=== PATIENT | female | born 1980 | race Two or more races ===

== ENCOUNTER 2018-12-14 10:05 | Emergency (ER) | payer OTHER ==
[~2018-12-14] VITALS: Ht 162.6 cm; Wt 81.6 kg
== END 2018-12-14 15:30 | disposition home or self-care (01) ==
LOC: ER 10:05
DX: K29.70 Gastritis, unspecified, without bleeding (principal)

== ENCOUNTER 2019-01-19 08:34 | Emergency (ER) | payer OTHER ==
[~2019-01-19] VITALS: Ht 162.6 cm; Wt 90.7 kg
== END 2019-01-19 16:07 | disposition home or self-care (01) ==
LOC: ER 08:34
DX: K52.9 Noninfective gastroenteritis and colitis, unspecified (principal); E86.0 Dehydration

== ENCOUNTER 2019-09-19 22:44 | Emergency (ER) | payer OTHER ==
[~2019-09-19] VITALS: Ht 152.4 cm; Wt 83.5 kg
[2019-09-19] MEDS ORDERED: KETO10TA2 PO (23:45)
== END 2019-09-20 01:34 | disposition home or self-care (01) ==
LOC: ER 22:44
DX: M94.0 Chondrocostal junction syndrome [Tietze] (principal)

== ENCOUNTER 2020-06-22 17:41 | Outpatient (CLI) | payer OTHER ==
[~2020-06-22 17:41] MED LIST: KETO10TA2 PO
== END 2020-06-22 17:44 | disposition home or self-care (01) ==
LOC: PPH VACUNA 17:41
DX: Z23 Encounter for immunization (principal)

== ENCOUNTER 2020-07-20 07:24 | Emergency (ER) | payer OTHER ==
[~2020-07-20] VITALS: Ht 162.6 cm; Wt 96.2 kg
[2020-07-20] MEDS ORDERED: KETO10TA2 PO (10:29)
== END 2020-07-20 10:36 | disposition home or self-care (01) ==
LOC: ER 07:24
DX: M25.571 Pain in right ankle and joints of right foot (principal)

== ENCOUNTER 2021-04-24 23:11 | Emergency (ER) | payer OTHER ==
[~2021-04-24] VITALS: Ht 162.6 cm; Wt 96.2 kg
[2021-04-25] MEDS ORDERED: ALBUTEROL2.5 MG/3 M IH (03:25)
[2021-04-25] MEDS ORDERED: PHENAGIL TABLE1 EACH PO (03:25)
[2021-04-25] MEDS ORDERED: ZYNCOF 20-400120 ML PO (03:25)
== END 2021-04-25 03:29 | disposition home or self-care (01) ==
LOC: ER 23:11
DX: J20.9 Acute bronchitis, unspecified (principal)